=== PATIENT | female | born 1965 | race American Indian/Alaskan Native ===

== ENCOUNTER 2017-06-01 15:03 | Outpatient (CLI) | payer BC ==
--- NOTE | 2017-06-02 08:22 | Mammography Report ---
BILATERAL DIGITAL DIAGNOSTIC MAMMOGRAM with CAD: 06/01/17 15:03:00 CLINICAL: Right breast pain. COMPARISON:None. FINDINGS: The breasts are mostly fatty.Right upper outer focal parenchymal asymmetry appears to be an island of normal fibroglandular structures. It demonstrates partial effacement with spot compression. No mass, architectural distortion or suspicious calcifications. Ultrasound of the right breast (including all four quadrants and the retroareolar area) was performed and demonstrated normal mostly fatty structures. No mass, cyst or shadowing. IMPRESSION: Negative gram and negative right breast ultrasound. No explanation for right breast pain. BI-RADS CATEGORY: 1 - - Negative RECOMMENDATION: Clinical followup and routine mammographic screening in one year. ACR BI-RADS MAMMOGRAPHIC CODES: 0 = Needs additional imaging evaluation; 1 = Negative; 2 = Benign; 3 = Probably benign; 4 = Suspicious; 5 = Malignant; 6 = Known biopsy-proven malignancy COMMENT: 1. Dense breast tissue, i.e., adenosis, fibrocystic changes, etc., may obscure an underlying neoplasm. 2. Approximately 10% of cancers are not detected with mammography. 3. A negative mammography report should not delay biopsy if a clinically suspicious mass is present. COMMENT: Patient follow-up letters are generated by our [employer] application.
== END 2017-06-01 15:04 | disposition home or self-care (01) ==
LOC: SPVWC 15:03
PROVIDERS: ATTEND Family Medicine
DX: N64.4 Mastodynia (principal)
CPT/HCPCS: 77066

== ENCOUNTER 2017-07-15 07:39 | Outpatient (CLI) | payer BC ==
--- NOTE | 2017-07-15 09:06 | XRay Report ---
Bilateral hips: Bilateral hip pain. Standing AP and lateral views of the hips or included with AP pelvis. Comparison made to prior exam in June 2015. The hip joints are well aligned and the joint spaces are preserved as are the articular surfaces. The bones are well-mineralized. SI joints are unremarkable. No interval change compared to prior exam. Impression: Normal exam.
== END 2017-07-15 07:40 | disposition home or self-care (01) ==
LOC: SPVIMAG 07:39
PROVIDERS: ATTEND Orthopaedic Surgery Sports Medicine
DX: M25.551 Pain in right hip (principal); M25.552 Pain in left hip
CPT/HCPCS: 73521

== ENCOUNTER 2017-07-28 13:31 | Outpatient (CLI) | payer BC ==
--- NOTE | 2017-07-29 08:26 | XRay Report ---
FINAL REPORT EXAM: XR SPINE LUMBOSACRAL 2-3V HISTORY: LOW BACK PAIN TECHNIQUE: Three views lumbar spine PRIORS: None. FINDINGS: Leftward convexity of the lumbar spine is centered at L2-L3. Superior endplate compression deformity at L2 results in 50 percent of anterior vertebral body height loss. No posterior fragmentation or retropulsion is identified. Intervertebral disc spaces and remaining vertebral body heights are preserved. IMPRESSION: Anterior superior L2 vertebral body compression deformity results in up to 50 percent height loss and is of unknown chronicity. Consider follow-up MRI as warranted.
== END 2017-07-28 13:32 | disposition home or self-care (01) ==
LOC: SPVIMAG 13:31 → XRAY 13:31 → SPVIMAG 13:32
PROVIDERS: ATTEND Orthopaedic Surgery Sports Medicine
DX: M54.5 Low back pain (principal)
CPT/HCPCS: 72100